=== PATIENT | male | born 1980 | race Caucasian/White ===

== ENCOUNTER 2017-09-27 14:49 | Emergency (ER) | payer BC, OTHER ==
--- NOTE | 2017-09-27 15:17 | ER Document Report ---
HPI - HPI Patient complains to provider of: Right foot pain Pain Level: 3 Context: Patient is a 37-year-old male complaining of pain to his right foot 3 days. Patient was lifting a generator when his foot slipped and all his weight plus the generators weight came down on the ball of his right foot. Pain is aggravated by any weightbearing. Associated Symptoms: None Exacerbated by: Walking Relieved by: Denies - ROS Systems Reviewed and Negative: Yes All other systems reviewed and negative Past Medical History - General Information source: Patient - Social History Smoking Status: Never Smoker Frequency of alcohol use: None Drug Abuse: None Lives with: Family Family History: Reviewed & Not Pertinent - Past Medical History Cardiac Medical History: Reports: Hx Hypertension - White coat syndrome, not on any tx, Hx Heart Murmur - as child, nonsymptomatic Denies: Hx Coronary Artery Disease, Hx Heart Attack Pulmonary Medical History: Reports: Hx Bronchitis - as teenager,no tx for>5years Denies: Hx Asthma, Hx COPD, Hx Pneumonia Neurological Medical History: Denies: Hx Cerebrovascular Accident, Hx Seizures GI Medical History: Musculoskeletal Medical History: Denies Hx Arthritis Infectious Medical History: Past Surgical History: Denies: Hx Pacemaker Vertical Provider Document - CONSTITUTIONAL Agree With Documented VS: Yes Exam Limitations: No Limitations - INFECTION CONTROL TRAVEL OUTSIDE OF THE [place] IN LAST 30 DAYS: Yes - HEENT HEENT: Atraumatic, PERRLA - NECK Neck: Normal Inspection, Supple - RESPIRATORY Respiratory: Breath Sounds Normal, No Respiratory Distress - MUSCULOSKELETAL/EXTREMETIES Musculoskeletal/Extremeties: Tender - Patient has focal tenderness to right distal fifth metatarsal. Positive generalized soft tissue swelling over right distal dorsal lateral foot. Course - Re-evaluation Re-evalutation: 09/27/17 15:44 Positive fracture to the proximal base of the fifth metatarsal. These results were discussed with the patient. Patient was placed in a posterior splint and given crutch instructions. Patient instructed to follow-up with orthopedist tomorrow for further evaluation and treatment. Patient is agreeable with plan is stable for discharge - Vital Signs Vital signs: Temp Pulse Resp BP Pulse Ox 98.5 F 74 16 144/78 H 97 09/27/17 14:57 09/27/17 14:57 09/27/17 14:57 09/27/17 14:57 09/27/17 14:57 Discharge - Discharge Clinical Impression: Foot fracture Qualifiers: Encounter type: initial encounter Fracture type: closed Laterality: right Qualified Code(s): S92.901A - Unspecified fracture of right foot, initial encounter for closed fracture Fracture of fifth metatarsal bone Qualifiers: Encounter type: initial encounter Fracture type: closed Fracture alignment: nondisplaced Laterality: right Qualified Code(s): S92.354A - Nondisplaced fracture of fifth metatarsal bone, right foot, initial encounter for closed fracture Condition: Stable Instructions: Foot Fracture ([facility]), Splint Pending Casting ([facility]), Use of Crutches ([facility]), Ice & Elevation ([facility]), Ibuprofen (General) ([facility]) Additional Instructions: You have fractured the fifth metatarsal bone in your right foot a temporary splint was applied Please use crutches, no weightbearing until seen by orthopedist Follow-up with orthopedist tomorrow for further evaluation and treatment Ice and elevate your foot as much as possible You may follow-up with [facility] [address] [place], [place] [id number] Prescriptions: Ibuprofen [Motrin 800 Mg Tablet] 800 mg PO Q6H #20 tablet Referrals: LUIS F PALMER [Primary Care Provider] - Follow up as needed MARTIN GARCIA DO [ACTIVE STAFF] - Follow up as needed
--- NOTE | 2017-09-27 16:02 | RADIOLOGY REPORT (SQ) ---
EXAM DESCRIPTION: FOOT RIGHT COMPLETE COMPLETED DATE/TIME: 09/27/2017 3:31 pm REASON FOR STUDY: right foot pain COMPARISON: None. NUMBER OF VIEWS: Three views. TECHNIQUE: AP, lateral and oblique radiographic images acquired of the right foot. LIMITATIONS: None. FINDINGS: MINERALIZATION: Normal. BONES: Transverse fracture at the base of the 5th metatarsal. JOINTS: No effusions. SOFT TISSUES: No soft tissue swelling. No foreign body. OTHER: No other significant finding. IMPRESSION: 5th metatarsal fracture. TECHNICAL DOCUMENTATION: JOB ID: [id number] [employer]- All Rights Reserved Reading location - IP/workstation name: [email or web address]
[2017-09-27 16:25] VITALS: BP 127/80
== END 2017-09-27 16:31 | disposition home or self-care (01) ==
LOC: ER 14:49
DX: S92.354A Nondisplaced fracture of fifth metatarsal bone, right foot, initial encounter for closed fracture (principal); W20.8XXA Other cause of strike by thrown, projected or falling object, initial encounter
CPT/HCPCS: 99283